=== PATIENT | female | born 1990 | race Caucasian/White ===

== ENCOUNTER 2017-08-23 16:35 | Emergency (ER) | payer MEDICAID ==
[~2017-08-23] VITALS: Ht 162.6 cm; Wt 67.7 kg
[~2017-08-23 16:35] MED LIST: IBIFON 600600 MG PO; IBU600 MG PO; IRON325 MG PO; MOTRIN 600600 MG/TAB PO; NORCO 325 MG-51 TAB PO; PERCOCET 325 MG1 TA2 PO; PRENATAL MVI PO; PRENATAL1 TA2 PO; ZOFRAN 4MG T4 MG/TAB PO
[2017-08-23 16:38] VITALS: BP 119/74; TEMP 97.9
[2017-08-23 17:17] LABS: COLLECTION METHOD CLEAN CATCH
[2017-08-23 17:30] LABS: BASO # 0.1 (0.0-0.2); BASO % 0.8 % (0.0-2.0); EOS # 0.3 (0.0-0.7); EOS % 3.9 % (0-4.0); GRAN # 5.1 (1.4-6.5); LYMPH # 1.8 (1.2-3.4); LYMPH % 22.9 % (20.0-51.0); MEAN CELL VOLUME 85 fl (80.0-100.0); MEAN CORPUSCULAR HGB CONC 32 g/dl (33.0-37.0); MEAN PLATELET VOLUME 11.7 fl (7.4-10.4); MONO # 0.6 (0.1-0.6); MONO % 7.1 % (1.7-9.3); PLATELET COUNT 195 K/mm3 (130-400); RED BLOOD COUNT 4.27 M/mm3 (4.10-5.30); REDCELL DISTRIBUTION WIDTH-CV 13.9 % (11.5-14.5)
[2017-08-23 17:33] LABS: HEMATOCRIT 36.1 % (37.0-47.0); HEMOGLOBIN 11.5 g/dl (12.5-16.0); MEAN CORPUSCULAR HEMOGLOBIN 27 pg (27.0-31.0)
[2017-08-23 17:34] LABS: MUCOUS Present /lpf; PH 5 (5-8); URINE APPEARANCE Cloudy; URINE BACTERIA None Seen /hpf; URINE BILIRUBIN Negative (NEGATIVE); URINE BLOOD 3+ (NEGATIVE); URINE COLOR Yellow; URINE GLUCOSE Negative (NEGATIVE); URINE KETONE Negative (NEGATIVE); URINE LEUKOCYTE ESTERASE 2+ (NEGATIVE); URINE NITRATE Negative (NEGATIVE); URINE PROTEIN(semi-quant) Negative (NEGATIVE); URINE UROBILINOGEN Negative (NEGATIVE)
[2017-08-23 18:35] VITALS: PULSE 94
== END 2017-08-23 18:36 | disposition home or self-care (01) ==
LOC: COL.ER 16:35
PROVIDERS: Nurse Practitioner
DX: O20.0 Threatened abortion (principal); Z3A.01 Less than 8 weeks gestation of pregnancy; Z98.890 Other specified postprocedural states

== ENCOUNTER 2017-08-31 14:00 | Day surgery (SDC) | payer MEDICAID ==
[2017-08-31] VITALS (9 sets, daily range): BP systolic 94–119; BP diastolic 55–74; PULSE 62–92; TEMP 98.9
[~2017-08-31] VITALS: Ht 162.6 cm; Wt 68.0 kg
[2017-08-31] MEDS ORDERED: IRON TABLETS325 MG PO (15:07)
[2017-08-31 15:25] LABS: BASO % 0.4 % (0.0-2.0); EOS # 0.2 (0.0-0.7); EOS % 2.1 % (0-4.0); GRAN # 6.3 (1.4-6.5); GRAN % 70.8 % (42.2-75.2); HEMOGLOBIN 11.3 g/dl (12.5-16.0); LYMPH # 1.9 (1.2-3.4); MEAN CELL VOLUME 84 fl (80.0-100.0); MEAN CORPUSCULAR HEMOGLOBIN 27 pg (27.0-31.0); MEAN CORPUSCULAR HGB CONC 32 g/dl (33.0-37.0); MEAN PLATELET VOLUME 11.4 fl (7.4-10.4); MONO # 0.5 (0.1-0.6); MONO % 5.4 % (1.7-9.3); PLATELET COUNT 170 K/mm3 (130-400); RED BLOOD COUNT 4.19 M/mm3 (4.10-5.30); REDCELL DISTRIBUTION WIDTH-CV 13.9 % (11.5-14.5)
[2017-08-31 15:44] LABS: ALBUMIN 4.8 gm/dL (3.5-5.0); BILIRUBIN,TOTAL 0.5 mg/dL (0.0-1.0); CALCIUM 9.3 mg/dL (8.4-10.2); CREATININE, serum 0.7 mg/dL (0.52-1.25); POTASSIUM 3.7 mmol/L (3.4-5.0)
[2017-08-31] MEDS ORDERED: PERCOCET 325 MG1 TA2 PO (19:00)
[2017-08-31] MEDS ORDERED: IBU600 MG PO (19:00)
[2017-09-01 03:50] VITALS: BP 97/59; PULSE 97; TEMP 98.1
[2017-09-01 08:30] VITALS: BP 96/55; PULSE 79; TEMP 98.6
== END 2017-09-01 10:45 | disposition home or self-care (01) ==
LOC: SDCO 14:00
PROVIDERS: Obstetrics & Gynecology
DX: O00.102 Left tubal pregnancy without intrauterine pregnancy (principal); O08.1 Delayed or excessive hemorrhage following ectopic and molar pregnancy; R19.09 Other intra-abdominal and pelvic swelling, mass and lump; O99.012 Anemia complicating pregnancy, second trimester; D50.9 Iron deficiency anemia, unspecified
CPT/HCPCS: J0690; J1100; J1885; J2405; J2704; J2710; J3010

== ENCOUNTER 2018-01-28 21:05 | Emergency (ER) | payer MEDICAID ==
[~2018-01-28] VITALS: Ht 162.6 cm; Wt 68.2 kg
[~2018-01-28 21:05] MED LIST changes: +IRON TABLETS325 MG PO
[2018-01-28 21:09] VITALS: TEMP 99.3
[2018-01-28] MEDS ORDERED: PRENATAL (21:47)
[2018-01-28 21:48] LABS: COLLECTION METHOD CLEAN CATCH
[2018-01-28 21:53] LABS: BASO % 0.6 % (0.0-2.0); EOS # 0.3 (0.0-0.7); GRAN % 55.6 % (42.2-75.2); LYMPH # 2.3 (1.2-3.4); LYMPH % 31.5 % (20.0-51.0); MEAN CELL VOLUME 80 fl (80.0-100.0); MEAN CORPUSCULAR HGB CONC 31 g/dl (33.0-37.0); MEAN PLATELET VOLUME 11.5 fl (7.4-10.4); MONO # 0.6 (0.1-0.6); PLATELET COUNT 207 K/mm3 (130-400); RED BLOOD COUNT 3.94 M/mm3 (4.10-5.30); REDCELL DISTRIBUTION WIDTH-CV 15.5 % (11.5-14.5)
[2018-01-28 21:55] LABS: MUCOUS Present /lpf; PH 7 (5-8); SQUAMOUS EPITHELIAL 0-2 /hpf; URINE APPEARANCE Hazy; URINE BACTERIA Rare /hpf; URINE BILIRUBIN Negative (NEGATIVE); URINE BLOOD 2+ (NEGATIVE); URINE COLOR Yellow; URINE GLUCOSE Negative (NEGATIVE); URINE KETONE Negative (NEGATIVE); URINE LEUKOCYTE ESTERASE Negative (NEGATIVE); URINE NITRATE Negative (NEGATIVE); URINE PROTEIN(semi-quant) Negative (NEGATIVE); URINE RBC 0-2 /hpf
[2018-01-28 21:57] LABS: HEMATOCRIT 31.5 % (37.0-47.0); HEMOGLOBIN 9.9 g/dl (12.5-16.0); MEAN CORPUSCULAR HEMOGLOBIN 25 pg (27.0-31.0)
[2018-01-28 21:59] LABS: BILIRUBIN,TOTAL 0.3 mg/dL (0.0-1.0); CREATININE, serum 0.73 mg/dL (0.52-1.25); POTASSIUM 3.5 mmol/L (3.4-5.0); TOTAL PROTEIN 7.5 gm/dL (6.4-8.2)
[2018-01-28 23:22] VITALS: BP 107/72; PULSE 91
== END 2018-01-28 23:22 | disposition home or self-care (01) ==
LOC: COL.ER 21:05
PROVIDERS: Nurse Practitioner
DX: O46.91 Antepartum hemorrhage, unspecified, first trimester (principal); Z3A.01 Less than 8 weeks gestation of pregnancy; Z98.890 Other specified postprocedural states

== ENCOUNTER 2019-03-01 12:49 | Outpatient (CLI) | payer MEDICAID ==
[~2019-03-01] VITALS: Ht 162.6 cm; Wt 60.7 kg
[~2019-03-01 12:49] MED LIST changes: +PRENATAL
[2019-03-01] MEDS ORDERED: BONJESTA ER 201 EACH PO (13:11)
[2019-03-01 13:15] VITALS: BP 114/64; PULSE 84; TEMP 98.7
== END 2019-03-01 15:20 | disposition home or self-care (01) ==
LOC: EUO 12:49
DX: O21.1 Hyperemesis gravidarum with metabolic disturbance (principal)
CPT/HCPCS: J2405; J7120

== ENCOUNTER 2019-03-14 19:20 | Emergency (ER) | payer MEDICAID ==
[~2019-03-14] VITALS: Ht 162.6 cm; Wt 61.4 kg
[~2019-03-14 19:20] MED LIST changes: +BONJESTA ER 201 EACH PO
[2019-03-14 19:29] VITALS: TEMP 98.9
[2019-03-14 19:59] LABS: COLLECTION METHOD CLEAN CATCH
[2019-03-14 20:08] LABS: BASO % 0.3 % (0.0-2.0); EOS # 0.5 (0.0-0.7); EOS % 4.4 % (0-4.0); GRAN # 7.1 (1.4-6.5); GRAN % 68.1 % (42.2-75.2); HEMOGLOBIN 12.4 g/dl (12.5-16.0); LYMPH # 2.2 (1.2-3.4); MEAN CELL VOLUME 95 fl (80.0-100.0); MEAN CORPUSCULAR HEMOGLOBIN 32 pg (27.0-31.0); MEAN CORPUSCULAR HGB CONC 34 g/dl (33.0-37.0); MEAN PLATELET VOLUME 10.9 fl (7.4-10.4); MONO # 0.6 (0.1-0.6); MONO % 5.7 % (1.7-9.3); PLATELET COUNT 187 K/mm3 (130-400); RED BLOOD COUNT 3.83 M/mm3 (4.10-5.30); REDCELL DISTRIBUTION WIDTH-CV 13.2 % (11.5-14.5)
[2019-03-14 20:14] LABS: HEMATOCRIT 36.2 % (37.0-47.0)
[2019-03-14 20:15] LABS: ALANINE AMINOTRANSFERASE < 6 U/L (9-52); ALKALINE PHOSPHATASE 62 U/L (50-136); ANION GAP 10 mmol/L (7-16); AST,SGOT 15 U/L (15-37); BILIRUBIN,TOTAL 0.3 mg/dL (0.0-1.0); BLOOD UREA NITROGEN 10 mg/dL (7-17); CARBON DIOXIDE 22 mmol/L (22-30); CHLORIDE 104 mmol/L (98-107); GLUCOSE 86 mg/dL (74-106); MUCOUS Present /lpf; PH 6 (5-8); POTASSIUM 3.5 mmol/L (3.4-5.0); SODIUM 136 mmol/L (137-145); TOTAL PROTEIN 7.2 gm/dL (6.4-8.2); URINE APPEARANCE Clear; URINE BACTERIA None Seen /hpf; URINE BILIRUBIN Negative (NEGATIVE); URINE BLOOD 2+ (NEGATIVE); URINE COLOR Yellow; URINE GLUCOSE Negative (NEGATIVE); URINE KETONE Negative (NEGATIVE); URINE LEUKOCYTE ESTERASE Negative (NEGATIVE); URINE NITRATE Negative (NEGATIVE); URINE PROTEIN(semi-quant) Negative (NEGATIVE); URINE UROBILINOGEN Negative (NEGATIVE)
[2019-03-14 21:50] VITALS: BP 102/69; PULSE 99
== END 2019-03-14 21:50 | disposition home or self-care (01) ==
LOC: COL.ER 19:20
PROVIDERS: Physician Assistant
DX: O21.9 Vomiting of pregnancy, unspecified (principal); Z3A.12 12 weeks gestation of pregnancy
CPT/HCPCS: J1200; J2405; J2765; J7030

== ENCOUNTER 2019-03-19 17:27 | Emergency (ER) | payer MEDICAID ==
[~2019-03-19] VITALS: Ht 160 cm; Wt 61.4 kg
[2019-03-19 17:38] VITALS: TEMP 98.7
[2019-03-19 18:39] LABS: COLLECTION METHOD CLEAN CATCH
[2019-03-19 18:45] LABS: BASO % 0.2 % (0.0-2.0); EOS # 0.4 (0.0-0.7); EOS % 4.7 % (0-4.0); GRAN # 5.1 (1.4-6.5); HEMATOCRIT 37.1 % (37.0-47.0); HEMOGLOBIN 12.7 g/dl (12.5-16.0); LYMPH # 2.2 (1.2-3.4); LYMPH % 25.9 % (20.0-51.0); MEAN CELL VOLUME 95 fl (80.0-100.0); MEAN CORPUSCULAR HEMOGLOBIN 33 pg (27.0-31.0); MEAN CORPUSCULAR HGB CONC 34 g/dl (33.0-37.0); MEAN PLATELET VOLUME 11.2 fl (7.4-10.4); MONO # 0.6 (0.1-0.6); MONO % 6.7 % (1.7-9.3); PLATELET COUNT 173 K/mm3 (130-400); RED BLOOD COUNT 3.91 M/mm3 (4.10-5.30); REDCELL DISTRIBUTION WIDTH-CV 13.2 % (11.5-14.5)
[2019-03-19 18:55] LABS: CALCIUM 9.4 mg/dL (8.4-10.2); CREATININE, serum 0.47 (0.52-1.25); POTASSIUM 3.6 mmol/L (3.4-5.0)
[2019-03-19 18:56] LABS: MUCOUS Present /lpf; PH 5 (5-8); URINE APPEARANCE Clear; URINE BACTERIA None Seen /hpf; URINE BILIRUBIN Negative (NEGATIVE); URINE BLOOD 1+ (NEGATIVE); URINE COLOR Yellow; URINE GLUCOSE Negative (NEGATIVE); URINE KETONE Negative (NEGATIVE); URINE LEUKOCYTE ESTERASE Negative (NEGATIVE); URINE NITRATE Negative (NEGATIVE); URINE PROTEIN(semi-quant) Negative (NEGATIVE)
[2019-03-19 20:10] VITALS: BP 110/72; PULSE 85
== END 2019-03-19 20:15 | disposition home or self-care (01) ==
LOC: COL.ER 17:27
PROVIDERS: Physician Assistant
DX: O21.1 Hyperemesis gravidarum with metabolic disturbance (principal); Z3A.13 13 weeks gestation of pregnancy
CPT/HCPCS: J2405; J7030

== ENCOUNTER 2019-03-26 19:30 | Emergency (ER) | payer MEDICAID ==
[~2019-03-26] VITALS: Ht 162.6 cm; Wt 63.6 kg
[2019-03-26 19:59] VITALS: TEMP 98.3
[2019-03-26 21:35] LABS: COLLECTION METHOD CLEAN CATCH
[2019-03-26 21:50] LABS: MUCOUS Present /lpf; PH 5 (5-8); SQUAMOUS EPITHELIAL 0-2 /hpf; URINE APPEARANCE Clear; URINE BACTERIA None Seen /hpf; URINE BILIRUBIN Negative (NEGATIVE); URINE BLOOD 2+ (NEGATIVE); URINE CALCIUM OXALATE CRYSTAL Present /hpf; URINE COLOR Yellow; URINE GLUCOSE Negative (NEGATIVE); URINE KETONE Trace (NEGATIVE); URINE LEUKOCYTE ESTERASE Negative (NEGATIVE); URINE NITRATE Negative (NEGATIVE); URINE PROTEIN(semi-quant) Negative (NEGATIVE); URINE RBC 20-50 /hpf
[2019-03-26] MEDS ORDERED: FLAGYL500 MG PO (23:25)
[2019-03-26 23:43] VITALS: BP 120/84; PULSE 92
== END 2019-03-26 23:43 | disposition home or self-care (01) ==
LOC: COL.ER 19:30
PROVIDERS: Nurse Practitioner
DX: O46.92 Antepartum hemorrhage, unspecified, second trimester (principal); Z3A.16 16 weeks gestation of pregnancy; Z98.890 Other specified postprocedural states; B96.89 Other specified bacterial agents as the cause of diseases classified elsewhere
CPT/HCPCS: J2550; J7030

== ENCOUNTER 2019-04-02 19:17 | Emergency (ER) | payer MEDICAID ==
[~2019-04-02] VITALS: Ht 162.6 cm; Wt 59.1 kg
[~2019-04-02 19:17] MED LIST changes: +FLAGYL500 MG PO
[2019-04-02 19:26] VITALS: TEMP 99
[2019-04-02] MEDS ORDERED: ZOFRAN 4MG T4 MG/TAB PO (19:30)
[2019-04-02] MEDS ORDERED: PHENERGAN 25 TA25 MG PO (19:30)
[2019-04-02 19:58] LABS: BASO % 0.4 % (0.0-2.0); EOS # 0.2 (0.0-0.7); EOS % 2.8 % (0-4.0); GRAN # 5.4 (1.4-6.5); GRAN % 73.1 % (42.2-75.2); HEMOGLOBIN 11.7 g/dl (12.5-16.0); LYMPH # 1.2 (1.2-3.4); LYMPH % 16.6 % (20.0-51.0); MEAN CELL VOLUME 96 fl (80.0-100.0); MEAN CORPUSCULAR HEMOGLOBIN 32 pg (27.0-31.0); MEAN CORPUSCULAR HGB CONC 34 g/dl (33.0-37.0); MEAN PLATELET VOLUME 11.4 fl (7.4-10.4); MONO # 0.5 (0.1-0.6); MONO % 6.8 % (1.7-9.3); PLATELET COUNT 143 K/mm3 (130-400); RED BLOOD COUNT 3.61 M/mm3 (4.10-5.30); REDCELL DISTRIBUTION WIDTH-CV 12.8 % (11.5-14.5)
[2019-04-02 20:01] LABS: HEMATOCRIT 34.8 % (37.0-47.0)
[2019-04-02 20:08] LABS: ALBUMIN 3.9 gm/dL (3.5-5.0); BILIRUBIN,TOTAL 0.9 mg/dL (0.0-1.0); CALCIUM 9.2 mg/dL (8.4-10.2); CREATININE, serum 0.49 (0.52-1.25); POTASSIUM 3.7 mmol/L (3.4-5.0); TOTAL PROTEIN 7.2 gm/dL (6.4-8.2)
[2019-04-02] MEDS ORDERED: ZOFRAN ODT4 MG PO (20:43)
[2019-04-02 21:05] VITALS: BP 105/65; PULSE 78
== END 2019-04-02 21:08 | disposition home or self-care (01) ==
LOC: COL.ER 19:17
PROVIDERS: Emergency Medicine
DX: O21.2 Late vomiting of pregnancy (principal); Z3A.17 17 weeks gestation of pregnancy
CPT/HCPCS: J2405; J2550; J7030

== ENCOUNTER 2019-04-19 19:12 | Emergency (ER) | payer MEDICAID ==
[~2019-04-19] VITALS: Ht 162.6 cm; Wt 61.4 kg
[~2019-04-19 19:12] MED LIST changes: +PHENERGAN 25 TA25 MG PO; +ZOFRAN ODT4 MG PO
[2019-04-19 19:24] VITALS: BP 108/52; TEMP 98.5
[2019-04-19 20:33] LABS: COLLECTION METHOD CLEAN CATCH
[2019-04-19 20:39] LABS: MUCOUS Present /lpf; PH 6 (5-8); SQUAMOUS EPITHELIAL 0-2 /hpf; URINE APPEARANCE Clear; URINE BACTERIA None Seen /hpf; URINE BILIRUBIN Negative (NEGATIVE); URINE BLOOD 2+ (NEGATIVE); URINE COLOR Yellow; URINE GLUCOSE Negative (NEGATIVE); URINE KETONE Negative (NEGATIVE); URINE LEUKOCYTE ESTERASE Negative (NEGATIVE); URINE NITRATE Negative (NEGATIVE); URINE PROTEIN(semi-quant) Negative (NEGATIVE); URINE UROBILINOGEN >=4.0 mg/dL (NEGATIVE)
[2019-04-19] MEDS ORDERED: TESSALON P100 MG/CAP PO ×2 (23:28)
[2019-04-19] MEDS ORDERED: MOTRIN 600600 MG/TAB PO ×2 (23:28)
[2019-04-19] MEDS ORDERED: ZITHROMAX Z PA250 MG PO (23:28)
[2019-04-19] MEDS ORDERED: MIRALAX238G PO (23:30)
[2019-04-19] MEDS ORDERED: DULCOLAX STOOL100 MG PO (23:30)
[2019-04-19 23:41] VITALS: PULSE 88
== END 2019-04-19 23:41 | disposition home or self-care (01) ==
LOC: COL.ER 19:12
PROVIDERS: Emergency Medicine
DX: O21.2 Late vomiting of pregnancy (principal); O26.892 Other specified pregnancy related conditions, second trimester; R51 Headache; K59.00 Constipation, unspecified; Z3A.19 19 weeks gestation of pregnancy; Z98.890 Other specified postprocedural states
CPT/HCPCS: J2405; J7030

== ENCOUNTER 2019-05-04 20:21 | Emergency (ER) | payer MEDICAID ==
[~2019-05-04] VITALS: Ht 162.6 cm; Wt 59.1 kg
[~2019-05-04 20:21] MED LIST changes: +DULCOLAX STOOL100 MG PO; +MIRALAX238G PO; +TESSALON P100 MG/CAP PO; +ZITHROMAX Z PA250 MG PO
[2019-05-04 21:13] LABS: COLLECTION METHOD CLEAN CATCH
[2019-05-04 21:19] LABS: MUCOUS Present /lpf; PH 6 (5-8); SQUAMOUS EPITHELIAL 0-2 /hpf; URINE APPEARANCE Clear; URINE BACTERIA None Seen /hpf; URINE BILIRUBIN Negative (NEGATIVE); URINE BLOOD 1+ (NEGATIVE); URINE COLOR Yellow; URINE GLUCOSE Negative (NEGATIVE); URINE KETONE Negative (NEGATIVE); URINE LEUKOCYTE ESTERASE Negative (NEGATIVE); URINE NITRATE Negative (NEGATIVE); URINE PROTEIN(semi-quant) Negative (NEGATIVE); URINE RBC 0-2 /hpf; URINE UROBILINOGEN >=4.0 mg/dL (NEGATIVE)
[2019-05-04 21:33] LABS: BASO % 0.4 % (0.0-2.0); EOS # 0.3 (0.0-0.7); EOS % 3.4 % (0-4.0); GRAN # 6.2 (1.4-6.5); GRAN % 63.9 % (42.2-75.2); HEMOGLOBIN 11.5 g/dl (12.5-16.0); LYMPH # 2.4 (1.2-3.4); LYMPH % 24.4 % (20.0-51.0); MEAN CELL VOLUME 95 fl (80.0-100.0); MEAN CORPUSCULAR HEMOGLOBIN 32 pg (27.0-31.0); MEAN CORPUSCULAR HGB CONC 34 g/dl (33.0-37.0); MEAN PLATELET VOLUME 11.7 fl (7.4-10.4); MONO # 0.7 (0.1-0.6); MONO % 7.5 % (1.7-9.3); PLATELET COUNT 158 K/mm3 (130-400); RED BLOOD COUNT 3.58 M/mm3 (4.10-5.30); REDCELL DISTRIBUTION WIDTH-CV 12.6 % (11.5-14.5)
[2019-05-04 21:49] LABS: ALANINE AMINOTRANSFERASE < 6 U/L (9-52); ALBUMIN 3.7 gm/dL (3.5-5.0); ALKALINE PHOSPHATASE 58 U/L (50-136); ANION GAP 9 mmol/L (7-16); AST,SGOT 11 U/L (15-37); BILIRUBIN,TOTAL 0.3 mg/dL (0.0-1.0); BLOOD UREA NITROGEN 8 mg/dL (7-17); C-REACTIVE PROTEIN 1.3 mg/dL (0.0-0.9); CALCIUM 9.3 mg/dL (8.4-10.2); CARBON DIOXIDE 22 mmol/L (22-30); CHLORIDE 105 mmol/L (98-107); CREATININE, serum 0.44 (0.52-1.25); GLUCOSE 88 mg/dL (74-106); POTASSIUM 3.6 mmol/L (3.4-5.0); SODIUM 136 mmol/L (137-145); TOTAL PROTEIN 7.1 gm/dL (6.4-8.2)
[2019-05-04 22:31] VITALS: BP 105/58; PULSE 80; TEMP 98.1
== END 2019-05-04 22:31 | disposition home or self-care (01) ==
LOC: COL.ER 20:21
PROVIDERS: Family Medicine
DX: O21.2 Late vomiting of pregnancy (principal); O99.282 Endocrine, nutritional and metabolic diseases complicating pregnancy, second trimester; E86.9 Volume depletion, unspecified; Z3A.19 19 weeks gestation of pregnancy
CPT/HCPCS: J2550; J7030

== ENCOUNTER 2019-09-19 05:09 | Inpatient (IN) | payer MEDICAID ==
[~2019-09-19] VITALS: Ht 162.7 cm; Wt 80.0 kg
[2019-09-19] VITALS (18 sets, daily range): BP systolic 100–121; BP diastolic 33–85; PULSE 79–104; TEMP 97.5–98.2
--- NOTE | 2019-09-19 05:15 | NUR ---
Patient ambulatory to unit accompanied by sister in law as support as her is deployed. Patient oriented to room and call light and clean gown on and resting in bed. FHR and contraction monitors placed and explained. Patient states only complication are anemia and hyperemesis. Patient denies any leaking of fluid or vaginal bleeding and states baby has been active. IV started in right hand, labs collected from IV site and LR infusing without difficulty. Consents signed.
[2019-09-19 05:53] LABS: BASO % 0.4 % (0.0-2.0); EOS # 0.3 (0.0-0.7); EOS % 2.7 % (0-4.0); GRAN # 6.8 (1.4-6.5); LYMPH # 2.2 (1.2-3.4); MEAN CELL VOLUME 80 fl (80.0-100.0); MEAN CORPUSCULAR HGB CONC 31 g/dl (33.0-37.0); MEAN PLATELET VOLUME 12.1 fl (7.4-10.4); MONO # 0.7 (0.1-0.6); MONO % 7.1 % (1.7-9.3); PLATELET COUNT 157 K/mm3 (130-400); RED BLOOD COUNT 3.99 M/mm3 (4.10-5.30); REDCELL DISTRIBUTION WIDTH-CV 15.9 % (11.5-14.5)
[2019-09-19 05:54] LABS: HEMATOCRIT 31.8 % (37.0-47.0); HEMOGLOBIN 9.8 g/dl (12.5-16.0); MEAN CORPUSCULAR HEMOGLOBIN 25 pg (27.0-31.0)
--- NOTE | 2019-09-19 15:35 | NUR ---
Patient to bathroom with standby assist, brown catheter removed and patient tolerates well. Pericare done, new gown/underwear/pad on on. Plan of care discussed.
[2019-09-20 04:30] VITALS: BP 109/73; PULSE 100; TEMP 98.6
[2019-09-20 08:12] LABS: HEMATOCRIT 26.7 % (37.0-47.0); HEMOGLOBIN 8.1 g/dl (12.5-16.0)
[2019-09-20 09:00] VITALS: BP 112/67; PULSE 95; TEMP 98.3
[2019-09-20] MEDS ORDERED: PERCOCET 325 MG1 TA2 PO (11:24)
[2019-09-20] MEDS ORDERED: IBU600 MG PO (11:24)
[2019-09-20 16:30] VITALS: BP 130/68; PULSE 100; TEMP 98.5
[2019-09-20 19:19] VITALS: BP 111/67; PULSE 89; TEMP 98.7
[2019-09-21 07:00] VITALS: BP 110/64; PULSE 72; TEMP 98.1
== END 2019-09-21 13:55 | disposition home or self-care (01) | DRG 788 ==
LOC: OB 05:09 → LDR 08:47 → OB 09:14
PROVIDERS: ADMIT Obstetrics & Gynecology
PROC: 10D00Z1 Extraction of Products of Conception, Low, Open Approach (ICD-10-PCS; principal; 2019-09-19)
DX: O34.211 Maternal care for low transverse scar from previous cesarean delivery (principal); Z3A.39 39 weeks gestation of pregnancy; Z37.0 Single live birth; O99.02 Anemia complicating childbirth; O21.0 Mild hyperemesis gravidarum; O77.0 Labor and delivery complicated by meconium in amniotic fluid
CPT/HCPCS: J0690; J1885; J2175; J2370; J2405; J2590; J3010; J7120

== ENCOUNTER 2020-05-01 22:41 | Emergency (ER) | payer MEDICAID ==
[~2020-05-01] VITALS: Ht 162.6 cm; Wt 72.7 kg
[2020-05-01 23:35] LABS: BASO # 0.1 (0.0-0.2); BASO % 0.5 % (0.0-2.0); EOS # 0.3 (0.0-0.7); EOS % 3.3 % (0-4.0); GRAN # 6.4 (1.4-6.5); GRAN % 65.9 % (42.2-75.2); HEMOGLOBIN 12.3 g/dl (12.5-16.0); LYMPH # 2.4 (1.2-3.4); LYMPH % 24.6 % (20.0-51.0); MEAN CELL VOLUME 89 fl (80.0-100.0); MEAN CORPUSCULAR HEMOGLOBIN 30 pg (27.0-31.0); MEAN CORPUSCULAR HGB CONC 33 g/dl (33.0-37.0); MEAN PLATELET VOLUME 10.9 fl (7.4-10.4); MONO # 0.5 (0.1-0.6); MONO % 5.3 % (1.7-9.3); PLATELET COUNT 213 K/mm3 (130-400); RED BLOOD COUNT 4.14 M/mm3 (4.10-5.30); REDCELL DISTRIBUTION WIDTH-CV 14.8 % (11.5-14.5)
[2020-05-02 01:15] LABS: COLLECTION METHOD CATHETER
[2020-05-02 01:25] LABS: MUCOUS Present /lpf; PH 5 (5-8); SQUAMOUS EPITHELIAL 0-2 /hpf; URINE APPEARANCE Clear; URINE BACTERIA None Seen /hpf; URINE BILIRUBIN Negative (NEGATIVE); URINE BLOOD 1+ (NEGATIVE); URINE COLOR Yellow; URINE GLUCOSE Negative (NEGATIVE); URINE KETONE Negative (NEGATIVE); URINE LEUKOCYTE ESTERASE Negative (NEGATIVE); URINE NITRATE Negative (NEGATIVE); URINE PROTEIN(semi-quant) Negative (NEGATIVE); URINE RBC 0-2 /hpf; URINE UROBILINOGEN Negative (NEGATIVE)
[2020-05-02 02:00] VITALS: BP 134/71; PULSE 84; TEMP 98.2
== END 2020-05-02 02:03 | disposition home or self-care (01) ==
LOC: COL.ER 22:41
PROVIDERS: Emergency Medicine
DX: N92.1 Excessive and frequent menstruation with irregular cycle (principal)

== ENCOUNTER 2020-06-26 07:00 | Outpatient (RCR) | payer MEDICAID ==
[~2020-06-26] VITALS: Ht 162.6 cm; Wt 73.3 kg
[2020-06-26] VITALS (9 sets, daily range): BP systolic 96–118; BP diastolic 63–77; PULSE 87–95; TEMP 98.3–98.5
== END 2020-06-26 12:00 | disposition home or self-care (01) ==
LOC: EUO 07:00
DX: D50.0 Iron deficiency anemia secondary to blood loss (chronic) (principal); N92.0 Excessive and frequent menstruation with regular cycle
CPT/HCPCS: J7050; P9016

== ENCOUNTER 2020-07-06 11:30 | Outpatient (RCR) | payer MEDICAID ==
[2020-07-01 16:32] VITALS: BP 103/62; PULSE 82; TEMP 98.7
[2020-07-01 18:00] VITALS: BP 124/79; PULSE 109
[~2020-07-06] VITALS: Ht 162.6 cm; Wt 76.3 kg
== END 2020-07-08 16:51 | disposition home or self-care (01) ==
LOC: EUO 11:30
DX: D50.9 Iron deficiency anemia, unspecified (principal)
CPT/HCPCS: J2916

== ENCOUNTER 2020-12-24 11:07 | Emergency (ER) | payer MEDICAID ==
[~2020-12-24] VITALS: Ht 162.6 cm; Wt 72.7 kg
[2020-12-24 11:29] VITALS: TEMP 98.2
[2020-12-24 12:30] LABS: BASO % 0.6 % (0.0-2.0); EOS # 0.1 (0.0-0.7); GRAN # 5.1 (1.4-6.5); GRAN % 71.2 % (42.2-75.2); HEMATOCRIT 37.2 % (37.0-47.0); HEMOGLOBIN 11.6 g/dl (12.5-16.0); LYMPH # 1.4 (1.2-3.4); LYMPH % 19.6 % (20.0-51.0); MEAN CELL VOLUME 83 fl (80.0-100.0); MEAN CORPUSCULAR HEMOGLOBIN 26 pg (27.0-31.0); MEAN CORPUSCULAR HGB CONC 31 g/dl (33.0-37.0); MEAN PLATELET VOLUME 11.8 fl (7.4-10.4); MONO # 0.5 (0.1-0.6); MONO % 6.3 % (1.7-9.3); PLATELET COUNT 212 K/mm3 (130-400); RED BLOOD COUNT 4.51 M/mm3 (4.10-5.30); REDCELL DISTRIBUTION WIDTH-CV 14.4 % (11.5-14.5)
[2020-12-24 12:48] LABS: ALBUMIN 4.6 gm/dL (3.5-5.0); BILIRUBIN,TOTAL 0.8 mg/dL (0.0-1.0); CALCIUM 9.7 mg/dL (8.4-10.2); CREATININE, serum 0.64 (0.52-1.25); POTASSIUM 3.6 mmol/L (3.4-5.0); TOTAL PROTEIN 8.5 gm/dL (6.4-8.2)
[2020-12-24 16:31] LABS: COLLECTION METHOD CLEAN CATCH
[2020-12-24 16:43] LABS: MUCOUS Present /lpf; PH 6 (5-8); URINE APPEARANCE Hazy; URINE BACTERIA None Seen /hpf; URINE BILIRUBIN Negative (NEGATIVE); URINE BLOOD 3+ (NEGATIVE); URINE COLOR Yellow; URINE GLUCOSE Negative (NEGATIVE); URINE KETONE 1+ (NEGATIVE); URINE LEUKOCYTE ESTERASE Negative (NEGATIVE); URINE NITRATE Negative (NEGATIVE); URINE PROTEIN(semi-quant) Negative (NEGATIVE)
[2020-12-24 17:20] VITALS: BP 132/90; PULSE 70
== END 2020-12-24 17:25 | disposition home or self-care (01) ==
LOC: COL.ER 11:07
PROVIDERS: Nurse Practitioner
DX: O20.0 Threatened abortion (principal); Z3A.01 Less than 8 weeks gestation of pregnancy
CPT/HCPCS: J2550; J7030

== ENCOUNTER 2020-12-31 17:52 | Emergency (ER) | payer MEDICAID ==
[~2020-12-31] VITALS: Ht 162.6 cm; Wt 72.7 kg
[2020-12-31 18:16] VITALS: TEMP 99.5
[2020-12-31 19:02] LABS: BASO % 0.4 % (0.0-2.0); EOS # 0.1 (0.0-0.7); EOS % 0.7 % (0-4.0); GRAN # 6.4 (1.4-6.5); GRAN % 77.7 % (42.2-75.2); HEMATOCRIT 37.7 % (37.0-47.0); HEMOGLOBIN 12.1 g/dl (12.5-16.0); LYMPH # 1.2 (1.2-3.4); LYMPH % 14.9 % (20.0-51.0); MEAN CELL VOLUME 83 fl (80.0-100.0); MEAN CORPUSCULAR HEMOGLOBIN 27 pg (27.0-31.0); MEAN CORPUSCULAR HGB CONC 32 g/dl (33.0-37.0); MEAN PLATELET VOLUME 11.7 fl (7.4-10.4); MONO # 0.5 (0.1-0.6); MONO % 5.9 % (1.7-9.3); PLATELET COUNT 215 K/mm3 (130-400); RED BLOOD COUNT 4.55 M/mm3 (4.10-5.30); REDCELL DISTRIBUTION WIDTH-CV 14.8 % (11.5-14.5)
[2020-12-31 20:17] VITALS: BP 102/60; PULSE 87
== END 2020-12-31 20:17 | disposition home or self-care (01) ==
LOC: COL.ER 17:52
PROVIDERS: Nurse Practitioner Primary Care
DX: O46.91 Antepartum hemorrhage, unspecified, first trimester (principal); Z3A.08 8 weeks gestation of pregnancy
CPT/HCPCS: J2550; J7030

== ENCOUNTER 2021-01-12 20:46 | Emergency (ER) | payer MEDICAID ==
[~2021-01-12] VITALS: Ht 162.6 cm; Wt 70.1 kg
[2021-01-12 21:33] VITALS: TEMP 99.1
[2021-01-12 23:42] LABS: BASO % 0.5 % (0.0-2.0); EOS # 0.2 (0.0-0.7); EOS % 2.6 % (0-4.0); GRAN # 5.1 (1.4-6.5); GRAN % 65.5 % (42.2-75.2); HEMATOCRIT 34.5 % (37.0-47.0); HEMOGLOBIN 11.1 g/dl (12.5-16.0); LYMPH % 25.2 % (20.0-51.0); MEAN CELL VOLUME 83 fl (80.0-100.0); MEAN CORPUSCULAR HEMOGLOBIN 27 pg (27.0-31.0); MEAN CORPUSCULAR HGB CONC 32 g/dl (33.0-37.0); MEAN PLATELET VOLUME 11.4 fl (7.4-10.4); MONO # 0.5 (0.1-0.6); MONO % 5.8 % (1.7-9.3); PLATELET COUNT 203 K/mm3 (130-400); RED BLOOD COUNT 4.14 M/mm3 (4.10-5.30); REDCELL DISTRIBUTION WIDTH-CV 15.1 % (11.5-14.5)
[2021-01-12 23:46] LABS: COLLECTION METHOD CLEAN CATCH
[2021-01-12 23:53] LABS: MUCOUS Present /lpf; PH 5 (5-8); SQUAMOUS EPITHELIAL None Seen /hpf; URINE APPEARANCE Cloudy; URINE BACTERIA None Seen /hpf; URINE BILIRUBIN Negative (NEGATIVE); URINE BLOOD Negative (NEGATIVE); URINE COLOR Yellow; URINE GLUCOSE Negative (NEGATIVE); URINE KETONE Trace (NEGATIVE); URINE LEUKOCYTE ESTERASE Negative (NEGATIVE); URINE NITRATE Negative (NEGATIVE); URINE PROTEIN(semi-quant) 1+ (NEGATIVE); URINE RBC 0-2 /hpf; URINE UROBILINOGEN >=4.0 mg/dL (NEGATIVE)
[2021-01-12 23:59] LABS: ALBUMIN 4.2 gm/dL (3.5-5.0); BILIRUBIN,TOTAL 0.6 mg/dL (0.0-1.0); CALCIUM 9.1 mg/dL (8.4-10.2); CREATININE, serum 0.52 (0.52-1.25); POTASSIUM 3.6 mmol/L (3.4-5.0); TOTAL PROTEIN 7.7 gm/dL (6.4-8.2)
[2021-01-13 00:23] LABS: C-REACTIVE PROTEIN 1.4 mg/dL (0.0-0.9)
[2021-01-13 01:49] VITALS: BP 108/78; PULSE 88
== END 2021-01-13 01:49 | disposition home or self-care (01) ==
LOC: COL.ER 20:46
PROVIDERS: Nurse Practitioner Primary Care
DX: O21.9 Vomiting of pregnancy, unspecified (principal); Z3A.09 9 weeks gestation of pregnancy
CPT/HCPCS: J2550

== ENCOUNTER 2021-01-18 16:26 | Emergency (ER) | payer MEDICAID ==
[~2021-01-18] VITALS: Ht 162.6 cm; Wt 70.0 kg
[2021-01-18 16:44] LABS: COLLECTION METHOD CLEAN CATCH
[2021-01-18 17:20] LABS: BASO % 0.4 % (0.0-2.0); EOS # 0.2 (0.0-0.7); EOS % 2.7 % (0-4.0); GRAN # 4.4 (1.4-6.5); GRAN % 65.7 % (42.2-75.2); HEMATOCRIT 37.6 % (37.0-47.0); HEMOGLOBIN 12.1 g/dl (12.5-16.0); LYMPH # 1.6 (1.2-3.4); LYMPH % 23.5 % (20.0-51.0); MEAN CELL VOLUME 84 fl (80.0-100.0); MEAN CORPUSCULAR HEMOGLOBIN 27 pg (27.0-31.0); MEAN CORPUSCULAR HGB CONC 32 g/dl (33.0-37.0); MEAN PLATELET VOLUME 11.9 fl (7.4-10.4); MONO # 0.5 (0.1-0.6); MONO % 7.3 % (1.7-9.3); PLATELET COUNT 209 K/mm3 (130-400); RED BLOOD COUNT 4.47 M/mm3 (4.10-5.30); REDCELL DISTRIBUTION WIDTH-CV 15.4 % (11.5-14.5)
[2021-01-18 17:20] LABS: MUCOUS Present /lpf; PH 6 (5-8); SQUAMOUS EPITHELIAL 0-2 /hpf; URINE APPEARANCE Clear; URINE BACTERIA Rare /hpf; URINE BILIRUBIN Negative (NEGATIVE); URINE BLOOD 1+ (NEGATIVE); URINE COLOR Yellow; URINE GLUCOSE Negative (NEGATIVE); URINE KETONE 2+ (NEGATIVE); URINE LEUKOCYTE ESTERASE Negative (NEGATIVE); URINE NITRATE Negative (NEGATIVE); URINE PROTEIN(semi-quant) Negative (NEGATIVE)
[2021-01-18 17:32] LABS: ALBUMIN 4.4 gm/dL (3.5-5.0); BILIRUBIN,TOTAL 0.7 mg/dL (0.0-1.0); CALCIUM 9.7 mg/dL (8.4-10.2); CREATININE, serum 0.57 (0.52-1.25); POTASSIUM 3.8 mmol/L (3.4-5.0)
[2021-01-18] MEDS ORDERED: PHENERGAN 25 TA25 MG PO (20:00)
[2021-01-18 20:34] VITALS: BP 101/59; PULSE 87; TEMP 98.9
== END 2021-01-18 20:35 | disposition home or self-care (01) ==
LOC: COL.ER 16:26
PROVIDERS: Family Medicine; Nurse Practitioner
DX: O21.9 Vomiting of pregnancy, unspecified (principal); Z3A.09 9 weeks gestation of pregnancy
CPT/HCPCS: J2550; J7030

== ENCOUNTER 2021-02-02 12:17 | Emergency (ER) | payer MEDICAID ==
[~2021-02-02] VITALS: Ht 162.6 cm; Wt 70.5 kg
[2021-02-02 12:24] VITALS: TEMP 98.5
[2021-02-02 13:21] LABS: COLLECTION METHOD CLEAN CATCH
[2021-02-02 13:41] LABS: MUCOUS Present /lpf; PH 5 (5-8); SQUAMOUS EPITHELIAL 0-2 /hpf; URINE APPEARANCE Cloudy; URINE BACTERIA None Seen /hpf; URINE BILIRUBIN Negative (NEGATIVE); URINE BLOOD 1+ (NEGATIVE); URINE COLOR Amber; URINE GLUCOSE Negative (NEGATIVE); URINE KETONE Trace (NEGATIVE); URINE LEUKOCYTE ESTERASE Negative (NEGATIVE); URINE NITRATE Negative (NEGATIVE); URINE PROTEIN(semi-quant) 1+ (NEGATIVE); URINE RBC 0-2 /hpf
[2021-02-02] MEDS ORDERED: BONJESTA ER 201 EACH PO (15:03)
[2021-02-02 15:15] VITALS: BP 103/76; PULSE 81
== END 2021-02-02 15:20 | disposition home or self-care (01) ==
LOC: COL.ER 12:17
PROVIDERS: Nurse Practitioner Primary Care
DX: O21.9 Vomiting of pregnancy, unspecified (principal); Z3A.12 12 weeks gestation of pregnancy
CPT/HCPCS: J2550; J7030

== ENCOUNTER 2021-02-08 10:44 | Emergency (ER) | payer MEDICAID ==
[~2021-02-08] VITALS: Ht 162.6 cm; Wt 63.6 kg
[2021-02-08 10:48] VITALS: TEMP 98.2
[2021-02-08 11:13] LABS: COLLECTION METHOD CLEAN CATCH
[2021-02-08 11:22] LABS: MUCOUS Present /lpf; PH 6 (5-8); SQUAMOUS EPITHELIAL None Seen /hpf; URINE APPEARANCE Clear; URINE BACTERIA None Seen /hpf; URINE BILIRUBIN Negative (NEGATIVE); URINE BLOOD 1+ (NEGATIVE); URINE COLOR Yellow; URINE GLUCOSE Negative (NEGATIVE); URINE KETONE Negative (NEGATIVE); URINE LEUKOCYTE ESTERASE Negative (NEGATIVE); URINE NITRATE Negative (NEGATIVE); URINE PROTEIN(semi-quant) Negative (NEGATIVE); URINE UROBILINOGEN >=4.0 mg/dL (NEGATIVE)
[2021-02-08 11:32] LABS: BILIRUBIN,TOTAL 0.5 mg/dL (0.0-1.0); CREATININE, serum 0.53 (0.52-1.25); POTASSIUM 3.9 mmol/L (3.4-5.0); TOTAL PROTEIN 7.7 gm/dL (6.4-8.2)
[2021-02-08 11:39] LABS: BASO % 0.7 % (0.0-2.0); EOS # 0.2 (0.0-0.7); EOS % 5.1 % (0-4.0); GRAN # 2.5 (1.4-6.5); GRAN % 55.6 % (42.2-75.2); LYMPH # 1.4 (1.2-3.4); LYMPH % 31.3 % (20.0-51.0); MEAN CELL VOLUME 85 fl (80.0-100.0); MEAN CORPUSCULAR HGB CONC 33 g/dl (33.0-37.0); MEAN PLATELET VOLUME 11.6 fl (7.4-10.4); MONO # 0.3 (0.1-0.6); MONO % 7.1 % (1.7-9.3); PLATELET COUNT 128 K/mm3 (130-400); REDCELL DISTRIBUTION WIDTH-CV 15.7 % (11.5-14.5)
[2021-02-08 11:42] LABS: HEMATOCRIT 29.6 % (37.0-47.0); HEMOGLOBIN 9.8 g/dl (12.5-16.0); MEAN CORPUSCULAR HEMOGLOBIN 28 pg (27.0-31.0)
[2021-02-08 12:55] VITALS: BP 100/64; PULSE 62
== END 2021-02-08 12:58 | disposition home or self-care (01) ==
LOC: COL.ER 10:44
PROVIDERS: Emergency Medicine
DX: O21.9 Vomiting of pregnancy, unspecified (principal); O20.0 Threatened abortion; Z3A.13 13 weeks gestation of pregnancy
CPT/HCPCS: J2765; J7030

== ENCOUNTER 2021-02-24 21:06 | Emergency (ER) | payer MEDICAID ==
[~2021-02-24] VITALS: Ht 162.6 cm; Wt 68.2 kg
[2021-02-24 22:44] LABS: BASO % 0.1 % (0.0-2.0); EOS # 0.3 (0.0-0.7); EOS % 3.6 % (0-4.0); GRAN # 4.6 (1.4-6.5); HEMATOCRIT 30.6 % (37.0-47.0); HEMOGLOBIN 10.3 g/dl (12.5-16.0); LYMPH # 1.6 (1.2-3.4); LYMPH % 23.1 % (20.0-51.0); MEAN CELL VOLUME 84 fl (80.0-100.0); MEAN CORPUSCULAR HEMOGLOBIN 28 pg (27.0-31.0); MEAN CORPUSCULAR HGB CONC 34 g/dl (33.0-37.0); MEAN PLATELET VOLUME 10.8 fl (7.4-10.4); MONO # 0.5 (0.1-0.6); MONO % 6.8 % (1.7-9.3); PLATELET COUNT 154 K/mm3 (130-400); RED BLOOD COUNT 3.65 M/mm3 (4.10-5.30); REDCELL DISTRIBUTION WIDTH-CV 16.5 % (11.5-14.5)
[2021-02-24 23:01] LABS: ALBUMIN 3.8 gm/dL (3.5-5.0); BILIRUBIN,TOTAL 0.6 mg/dL (0.0-1.0); CREATININE, serum 0.61 (0.52-1.25); POTASSIUM 3.3 mmol/L (3.4-5.0); TOTAL PROTEIN 6.8 gm/dL (6.4-8.2)
[2021-02-25 00:01] LABS: COLLECTION METHOD CLEAN CATCH
[2021-02-25 00:08] LABS: MUCOUS Present /lpf; PH 6 (5-8); SQUAMOUS EPITHELIAL 0-2 /hpf; URINE APPEARANCE Clear; URINE BACTERIA None Seen /hpf; URINE BILIRUBIN Negative (NEGATIVE); URINE BLOOD 1+ (NEGATIVE); URINE COLOR Yellow; URINE GLUCOSE Negative (NEGATIVE); URINE KETONE 1+ (NEGATIVE); URINE LEUKOCYTE ESTERASE Negative (NEGATIVE); URINE NITRATE Negative (NEGATIVE); URINE PROTEIN(semi-quant) Negative (NEGATIVE); URINE RBC 0-2 /hpf; URINE UROBILINOGEN Negative (NEGATIVE)
[2021-02-25 00:38] VITALS: BP 89/56; PULSE 86; TEMP 98.4
== END 2021-02-25 00:38 | disposition home or self-care (01) ==
LOC: COL.ER 21:06 → MEDICAL 23:50 → COL.ER 02-25 00:38
PROVIDERS: Emergency Medicine
DX: O21.0 Mild hyperemesis gravidarum (principal); O20.0 Threatened abortion; Z3A.15 15 weeks gestation of pregnancy
CPT/HCPCS: J2550; J7120

== ENCOUNTER 2021-03-17 20:01 | Emergency (ER) | payer MEDICAID ==
[~2021-03-17] VITALS: Ht 162.6 cm; Wt 68.2 kg
[2021-03-17 21:58] LABS: COLLECTION METHOD CLEAN CATCH
[2021-03-17 22:02] LABS: BASO % 0.4 % (0.0-2.0); EOS # 0.3 (0.0-0.7); EOS % 3.8 % (0-4.0); GRAN # 4.6 (1.4-6.5); GRAN % 64.6 % (42.2-75.2); HEMATOCRIT 34.1 % (37.0-47.0); LYMPH # 1.6 (1.2-3.4); LYMPH % 22.7 % (20.0-51.0); MEAN CELL VOLUME 87 fl (80.0-100.0); MEAN CORPUSCULAR HEMOGLOBIN 28 pg (27.0-31.0); MEAN CORPUSCULAR HGB CONC 32 g/dl (33.0-37.0); MEAN PLATELET VOLUME 11.8 fl (7.4-10.4); MONO # 0.6 (0.1-0.6); MONO % 7.9 % (1.7-9.3); PLATELET COUNT 220 K/mm3 (130-400)
[2021-03-17 22:07] LABS: MUCOUS Present /lpf; PH 5 (5-8); SQUAMOUS EPITHELIAL 0-2 /hpf; URINE APPEARANCE Hazy; URINE BACTERIA None Seen /hpf; URINE BILIRUBIN Negative (NEGATIVE); URINE BLOOD Negative (NEGATIVE); URINE COLOR Amber; URINE GLUCOSE Negative (NEGATIVE); URINE KETONE 1+ (NEGATIVE); URINE LEUKOCYTE ESTERASE Negative (NEGATIVE); URINE NITRATE Negative (NEGATIVE); URINE PROTEIN(semi-quant) 1+ (NEGATIVE)
[2021-03-17 22:32] LABS: ALBUMIN 3.6 gm/dL (3.5-5.0); BILIRUBIN,TOTAL 0.6 mg/dL (0.2-1.2); C-REACTIVE PROTEIN 6.6 mg/dL (0.00-0.50); CALCIUM 9.5 mg/dL (8.4-10.2); CREATININE, serum 0.72 mg/dL (0.57-1.11); TOTAL PROTEIN 8.2 gm/dL (6.2-8.1)
[2021-03-17 23:15] VITALS: BP 109/60; PULSE 80; TEMP 97.6
== END 2021-03-17 23:18 | disposition home or self-care (01) ==
LOC: COL.ER 20:01
PROVIDERS: Family Medicine
DX: O21.0 Mild hyperemesis gravidarum (principal); O20.0 Threatened abortion; Z3A.17 17 weeks gestation of pregnancy
CPT/HCPCS: J2550; J7120

== ENCOUNTER 2021-04-20 17:13 | Emergency (ER) | payer MEDICAID ==
[~2021-04-20] VITALS: Ht 162.6 cm; Wt 72.7 kg
[2021-04-20 18:23] LABS: BASO % 0.5 % (0.0-2.0); EOS # 0.1 K/mm3 (0.0-0.7); EOS % 0.8 % (0-4.0); GRAN # 5.3 K/mm3 (1.4-6.5); GRAN % 82.9 % (42.2-75.2); LYMPH # 0.6 K/mm3 (1.2-3.4); LYMPH % 9.1 % (20.0-51.0); MEAN CELL VOLUME 85 fl (80.0-100.0); MEAN CORPUSCULAR HGB CONC 32 g/dl (33.0-37.0); MONO # 0.4 K/mm3 (0.1-0.6); MONO % 6.1 % (1.7-9.3); PLATELET COUNT 157 K/mm3 (130-400); RED BLOOD COUNT 3.47 M/mm3 (4.10-5.30); REDCELL DISTRIBUTION WIDTH-CV 15.5 % (11.5-14.5)
[2021-04-20 18:28] LABS: HEMATOCRIT 29.6 % (37.0-47.0); HEMOGLOBIN 9.4 g/dl (12.5-16.0); MEAN CORPUSCULAR HEMOGLOBIN 27 pg (27.0-31.0)
[2021-04-20 18:34] LABS: COLLECTION METHOD CLEAN CATCH
[2021-04-20 18:48] LABS: MUCOUS Present /lpf; PH 5 (5-8); SQUAMOUS EPITHELIAL 0-2 /hpf; URINE APPEARANCE Hazy; URINE BACTERIA None Seen /hpf; URINE BILIRUBIN Negative (NEGATIVE); URINE BLOOD 3+ (NEGATIVE); URINE COLOR Yellow; URINE GLUCOSE Negative (NEGATIVE); URINE KETONE 1+ (NEGATIVE); URINE LEUKOCYTE ESTERASE Negative (NEGATIVE); URINE NITRATE Negative (NEGATIVE); URINE PROTEIN(semi-quant) Negative (NEGATIVE); URINE UROBILINOGEN Negative (NEGATIVE)
[2021-04-20 18:51] LABS: ALBUMIN 3.3 gm/dL (3.5-5.0); BILIRUBIN,TOTAL 0.5 mg/dL (0.2-1.2); C-REACTIVE PROTEIN 3.93 mg/dL (0.00-0.50); CALCIUM 8.9 mg/dL (8.4-10.2); CREATININE, serum 0.66 mg/dL (0.57-1.11); POTASSIUM 3.7 mmol/L (3.5-4.5); TOTAL PROTEIN 6.8 gm/dL (6.2-8.1)
[2021-04-20 22:13] VITALS: BP 105/70; PULSE 114; TEMP 98.9
== END 2021-04-20 22:40 | disposition home or self-care (01) ==
LOC: COL.ER 17:13
PROVIDERS: Nurse Practitioner
DX: O98.512 Other viral diseases complicating pregnancy, second trimester (principal); U07.1 COVID-19; Z3A.23 23 weeks gestation of pregnancy
CPT/HCPCS: J2550; J7030

== ENCOUNTER 2021-04-26 10:21 | Emergency (ER) | payer MEDICAID ==
[~2021-04-26] VITALS: Ht 162.6 cm; Wt 72.7 kg
[2021-04-26 10:54] VITALS: TEMP 98.4
[2021-04-26 11:40] LABS: MEAN CELL VOLUME 84 fl (80.0-100.0); MEAN CORPUSCULAR HGB CONC 32 g/dl (33.0-37.0); MEAN PLATELET VOLUME 11.4 fl (7.4-10.4); PLATELET COUNT 135 K/mm3 (130-400); RED BLOOD COUNT 3.67 M/mm3 (4.10-5.30); REDCELL DISTRIBUTION WIDTH-CV 15.5 % (11.5-14.5)
--- NOTE | 2021-04-26 11:40 | NUR ---
This RN to bedside to doppler heart tones. Patient denies any LOF or VB. Patient reports intermittent cramping; abdomen palpates soft. FHR 140's, no audible increases or decreases. Primary [employer] CHUTE OPERATOR notified.
[2021-04-26 11:48] LABS: HEMATOCRIT 30.9 % (37.0-47.0); HEMOGLOBIN 9.8 g/dl (12.5-16.0); MEAN CORPUSCULAR HEMOGLOBIN 27 pg (27.0-31.0)
[2021-04-26 11:55] LABS: ALANINE AMINOTRANSFERASE 11 U/L (0-55); ALKALINE PHOSPHATASE 81 U/L (40-150); ANION GAP 11 mmol/L (7-16); AST,SGOT 14 U/L (5-34); BILIRUBIN,TOTAL 0.4 mg/dL (0.2-1.2); BLOOD UREA NITROGEN 8 mg/dL (7-19); C-REACTIVE PROTEIN 6.26 mg/dL (0.00-0.50); CALCIUM 8.8 mg/dL (8.4-10.2); CARBON DIOXIDE 20 mmol/L (22-29); CHLORIDE 108 mmol/L (98-107); CREATININE, serum 0.69 mg/dL (0.57-1.11); GLUCOSE 101 mg/dL (70-99); POTASSIUM 3.6 mmol/L (3.5-4.5); SODIUM 139 mmol/L (136-145); TOTAL PROTEIN 7.2 gm/dL (6.2-8.1)
[2021-04-26 12:24] LABS: BAND 10 % (0-10); LYMPHOCYTE 19 % (20.0-51.0); METAMYELOCYTE 2 % (0-0); NEUTROPHILS 64 % (42.0-75.2)
[2021-04-26 12:25] LABS: ANISOCYTOSIS 1+; HYPOCHROMIA 2+; TROPONIN-I < 0.010 ng/mL (0.00-0.033)
[2021-04-26] MEDS ORDERED: PHENERGAN 25 TA25 MG PO (13:26)
[2021-04-26 14:41] VITALS: BP 101/70; PULSE 94
== END 2021-04-26 14:43 | disposition home or self-care (01) ==
LOC: COL.ER 10:21
PROVIDERS: Nurse Practitioner
DX: O98.512 Other viral diseases complicating pregnancy, second trimester (principal); U07.1 COVID-19; O21.9 Vomiting of pregnancy, unspecified; Z3A.23 23 weeks gestation of pregnancy
CPT/HCPCS: J2550; J7030

== ENCOUNTER 2021-05-01 14:57 | Emergency (ER) | payer MEDICAID ==
[~2021-05-01] VITALS: Ht 162.6 cm; Wt 72.7 kg
--- NOTE | 2021-05-01 16:15 | NUR ---
This RN at bedside for FHR strip and assessing patient. Patient denies any leaking of fluid/heavy vaginal bleeding/decreased movements/regular contractions. 20 minute FHR strip obtained: 145-150bpm baseline. 1640: Spoke with RN and updated her on FHR strip. questions about vaginal bleeding and abdominal pain that she had complaints of. 1644: This RN calls and updates/notifies Dr. Sousa on patients complaints/FHR strip. Dr. Sousa states she is okay with dismissal of patient. This RN calls and notifies ER nurse.
[2021-05-01 17:18] VITALS: BP 104/67; PULSE 88; TEMP 98
== END 2021-05-01 17:15 | disposition home or self-care (01) ==
LOC: COL.ER 14:57
DX: O98.512 Other viral diseases complicating pregnancy, second trimester (principal); U07.1 COVID-19; O21.9 Vomiting of pregnancy, unspecified; Z3A.24 24 weeks gestation of pregnancy
CPT/HCPCS: J2765; J7030

== ENCOUNTER 2021-05-31 14:00 | Emergency (ER) | payer MEDICAID ==
[~2021-05-31] VITALS: Ht 162.6 cm; Wt 68.2 kg
[2021-05-31 17:46] LABS: BASO % 0.2 % (0.0-2.0); EOS # 0.2 K/mm3 (0.0-0.7); EOS % 2.8 % (0-4.0); GRAN # 5.7 K/mm3 (1.4-6.5); GRAN % 70.4 % (42.2-75.2); LYMPH # 1.6 K/mm3 (1.2-3.4); LYMPH % 19.7 % (20.0-51.0); MEAN CELL VOLUME 86 fl (80.0-100.0); MEAN CORPUSCULAR HGB CONC 30 g/dl (33.0-37.0); MEAN PLATELET VOLUME 12.4 fl (7.4-10.4); MONO # 0.5 K/mm3 (0.1-0.6); MONO % 6.2 % (1.7-9.3); PLATELET COUNT 165 K/mm3 (130-400); RED BLOOD COUNT 3.31 M/mm3 (4.10-5.30); REDCELL DISTRIBUTION WIDTH-CV 17.2 % (11.5-14.5)
[2021-05-31 17:51] LABS: HEMATOCRIT 28.5 % (37.0-47.0); HEMOGLOBIN 8.6 g/dl (12.5-16.0); MEAN CORPUSCULAR HEMOGLOBIN 26 pg (27.0-31.0)
[2021-05-31 18:05] LABS: ALBUMIN 2.9 gm/dL (3.5-5.0); BILIRUBIN,TOTAL 0.4 mg/dL (0.2-1.2); C-REACTIVE PROTEIN 0.71 mg/dL (0.00-0.50); CALCIUM 8.2 mg/dL (8.4-10.2); CREATININE, serum 0.61 mg/dL (0.57-1.11); POTASSIUM 3.5 mmol/L (3.5-4.5); TOTAL PROTEIN 6.4 gm/dL (6.2-8.1)
[2021-05-31] MEDS ORDERED: PROMETHAZINE12.5 M5 PO (19:27)
[2021-05-31 21:00] VITALS: BP 121/68; PULSE 74; TEMP 98.1
[2021-06-07] MEDS ORDERED: ZOFRAN ODT4 MG PO (15:29)
== END 2021-05-31 21:00 | disposition home or self-care (01) ==
LOC: COL.ER 14:00
PROVIDERS: Emergency Medicine
DX: O21.9 Vomiting of pregnancy, unspecified (principal); O99.013 Anemia complicating pregnancy, third trimester; D64.9 Anemia, unspecified; Z3A.29 29 weeks gestation of pregnancy
CPT/HCPCS: J2405; J2550; J7030

== ENCOUNTER 2021-06-14 15:00 | Outpatient (RCR) | payer MEDICAID ==
[2021-06-07 15:34] VITALS: BP 132/63; PULSE 62; TEMP 98.5
[2021-06-10 15:27] VITALS: BP 95/55; PULSE 92; TEMP 98.2
--- NOTE | 2021-06-10 15:41 | NUR ---
1541-EFM placed on patient in express unit getting IV infusion of iron. Patient reports 29 weeks due 07/24/2021. Reports good fetall movement. Reactive FHR obtained. 1604 patient off EFM.
[~2021-06-14] VITALS: Ht 162.6 cm; Wt 77.6 kg
[~2021-06-14 15:00] MED LIST changes: +PROMETHAZINE12.5 M5 PO
[2021-06-14 16:15] VITALS: BP 93/59; PULSE 90; TEMP 98.3
== END 2021-06-14 17:41 | disposition still patient (30) ==
LOC: EUO 15:00
DX: O99.019 Anemia complicating pregnancy, unspecified trimester (principal)
CPT/HCPCS: J1756; J7050

== ENCOUNTER → 2021-06-21 | Outpatient (CLI) | payer MEDICAID ==
[~2021-06-21] MED LIST changes: +EUTHYROX100 MCG PO; +NATURAL IRON65 MG PO
== END ==
LOC: DIA.ED 09:09
DX: O24.419 Gestational diabetes mellitus in pregnancy, unspecified control (principal)
CPT/HCPCS: G0108

== ENCOUNTER 2021-07-02 21:18 | Outpatient (CLI) | payer MEDICAID ==
[~2021-07-02] VITALS: Ht 162.6 cm; Wt 75.9 kg
[~2021-07-02 21:18] MED LIST changes: -EUTHYROX100 MCG PO; -NATURAL IRON65 MG PO
--- NOTE | 2021-07-02 21:33 | NUR ---
EFM AND TOCO APPLIED
[2021-07-02] MEDS ORDERED: EUTHYROX100 MCG PO (21:55)
[2021-07-02] MEDS ORDERED: NATURAL IRON65 MG PO (21:56)
[2021-07-02 22:00] VITALS: BP 109/65; PULSE 85; TEMP 98.3
--- NOTE | 2021-07-02 22:15 | NUR ---
PT RESTING IN BED ON CELLPHONE, NO SIGNS OF DISTRESS. PLAN OF CARE DISCUSSED WITH PATIENT AND SHE VERBALIZED AN UNDERSTANDING AND DENIES FURTHER QUESTIONS. PT GIVEN SANDWHICH AND WATER, PT DENIES FURTHER NEEDS AT THIS TIME. CALL LIGHT WITHIN REACH
[2021-07-02 22:30] VITALS: BP 100/61; PULSE 86
--- NOTE | 2021-07-02 22:35 | NUR ---
PT SITTING UPRIGHT IN BED WATCHING TV AND EATING, NO SIGNS OF DISTRESS. FRIEND PRESENT AT BEDSIDE. PT GIVEN ICE PACK FOR ANKLE. PT DENIES FURTHER NEEDS AT THIS TIME
--- NOTE | 2021-07-02 22:55 | NUR ---
BREAKS IN FHTS ARE OBSERVED DURING MATERNAL POSITION CHANGE. RN AT BEDSIDE TO ADJUST MONITORS. PT DENIES FURTHER NEEDS AT THIS TIME.
[2021-07-02 23:00] VITALS: BP 112/68; PULSE 95
[2021-07-02 23:30] VITALS: BP 90/54; PULSE 90
--- NOTE | 2021-07-02 23:37 | NUR ---
2330- DISCHARGE INSTRUCTIONS REVIEWED WITH PATIENT, PT VERBALIZED AN UNDERSTANDING AND DENIES FURTHER QUESTIONS AT THIS TIME. PT GIVEN COPY OF DISCHARGE INSTRUCTIONS. 2337- TOCO AND EFM REMOVED TO ALLOW PT TO CHANGE BACK IN CLOTHES.
--- NOTE | 2021-07-02 23:43 | NUR ---
PT DISCHARGED TO HOME IN STABLE UNDELIVERED CONDITION AT THIS TIME. PT AMBULATED OFF UNIT WITH SISTER AT THIS TIME
== END 2021-07-02 23:43 | disposition home or self-care (01) ==
LOC: LDRO 21:18
DX: O26.893 Other specified pregnancy related conditions, third trimester (principal); O9A.213 Injury, poisoning and certain other consequences of external causes complicating pregnancy, third trimester; R10.9 Unspecified abdominal pain; Z3A.33 33 weeks gestation of pregnancy; W19.XXXA Unspecified fall, initial encounter

== ENCOUNTER 2021-07-29 18:07 | Outpatient (CLI) | payer MEDICAID ==
[~2021-07-29] VITALS: Ht 162.6 cm; Wt 78.2 kg
[~2021-07-29 18:07] MED LIST changes: +EUTHYROX100 MCG PO; +NATURAL IRON65 MG PO
--- NOTE | 2021-07-29 18:15 | NUR ---
Ambulatory to unit for assessment. Pt reports nausea and vomitting x 2 days. Pt reports last time she kept down water was 10pm ;ast [place]. Now reports "dizzy and lightheaded" On monitor, oriented to room, monitor, plan of care. Questions invited and answered,
[2021-07-29 18:30] VITALS: BP 116/70; PULSE 128
[2021-07-29 18:45] VITALS: PULSE 123
[2021-07-29 19:20] VITALS: BP 110/70; PULSE 121
[2021-07-29 19:31] LABS: BASO % 0.2 % (0.0-2.0); EOS # 0.1 K/mm3 (0.0-0.7); EOS % 1.3 % (0.0-4.0); GRAN # 7.9 K/mm3 (1.4-6.5); GRAN % 71.6 % (42.2-75.2); HEMATOCRIT 33.8 % (37.0-47.0); LYMPH % 18.1 % (20.0-51.0); MEAN CELL VOLUME 91 fl (80.0-100.0); MEAN CORPUSCULAR HEMOGLOBIN 30 pg (27-31); MEAN CORPUSCULAR HGB CONC 33 g/dl (33.0-37.0); MEAN PLATELET VOLUME 11.9 fl (7.4-10.4); MONO # 0.9 K/mm3 (0.1-0.6); MONO % 8.2 % (1.7-9.3); PLATELET COUNT 200 K/mm3 (130-400); RED BLOOD COUNT 3.73 M/mm3 (4.10-5.30); REDCELL DISTRIBUTION WIDTH-CV 18.3 % (11.5-14.5)
--- NOTE | 2021-07-29 19:40 | NUR ---
Pt reports "i feel pretty bad, I think I might get sick" Explained to pt that Alyson has been given, given alcohol prep to wave under her nose, cool wash cloth, emesis basin.
[2021-07-29 19:55] LABS: ALBUMIN 3.2 gm/dL (3.5-5.0); BILIRUBIN,TOTAL 0.6 mg/dL (0.2-1.2); CREATININE, serum 0.61 mg/dL (0.57-1.11); POTASSIUM 3.8 mmol/L (3.5-4.5); TOTAL PROTEIN 7.1 gm/dL (6.2-8.1)
--- NOTE | 2021-07-29 19:55 | NUR ---
pt reports "i feel better" apple juice provided and encouraged to take small sips.
[2021-07-29 20:00] VITALS: BP 101/70; PULSE 112
[2021-07-29 20:20] VITALS: PULSE 102
--- NOTE | 2021-07-29 20:25 | NUR ---
Off monitor, up to bathroom. PT relaxed, social. Denies nausea at this time.
[2021-07-29 20:48] LABS: COLLECTION METHOD CLEAN CATCH
[2021-07-29 20:57] LABS: MUCOUS Present (NOT PRESENT); URINE BACTERIA Rare /hpf (NONE SEEN)
[2021-07-29 20:59] LABS: URINE APPEARANCE Clear (CLEAR/HAZY); URINE COLOR Yellow (YELLOW)
[2021-07-29 21:00] LABS: PH 6 (5-8); URINE BILIRUBIN Negative (NEGATIVE); URINE BLOOD 1+ (NEGATIVE); URINE GLUCOSE Negative (NEGATIVE); URINE KETONE Negative (NEGATIVE); URINE LEUKOCYTE ESTERASE Negative (NEGATIVE); URINE NITRATE Negative (NEGATIVE); URINE PROTEIN(semi-quant) 1+ (NEGATIVE); URINE UROBILINOGEN Negative (NEGATIVE)
--- NOTE | 2021-07-29 21:05 | NUR ---
Dr Haas on unit, reviews labs. Discharge order received.
--- NOTE | 2021-07-29 21:10 | NUR ---
Into room to discuss discharge. PT texting . Explained to pt that she could be downstairs waiting for him in 5 minutes. Pt states "I'm starving! Can I have one of those sandwich meals before I go?" Discharge instructions rviewed questions invited and answered. [place] box provided. Will discharge after pt eats. 2119 Denies nausea after eating sandwich, applesauce and cookie. Ambulatory off unit.
== END 2021-07-29 21:20 | disposition home or self-care (01) ==
LOC: LDRO 18:07 → LDR 18:20 → LDRO 21:20
PROVIDERS: Obstetrics & Gynecology
DX: O21.9 Vomiting of pregnancy, unspecified (principal); O26.893 Other specified pregnancy related conditions, third trimester; R42 Dizziness and giddiness; Z3A.37 37 weeks gestation of pregnancy
CPT/HCPCS: OP; J2405; J7121

== ENCOUNTER 2021-08-06 07:30 | Inpatient (IN) | payer MEDICAID ==
[~2021-08-06] VITALS: Ht 162.6 cm; Wt 81.8 kg
[2021-08-09] VITALS (16 sets, daily range): BP systolic 86–108; BP diastolic 44–67; PULSE 62–88; TEMP 98–98.6
--- NOTE | 2021-08-09 09:25 | NUR ---
[id number], [id number] arrives on unit for scheduled section. Ambulatory to 220 with spose. Changes into clean gown. Reports normal movement, and irregular contractions. Denies any LOF or VB. 0940EFM explained and placed. VS obtained. Assessment completed. 0945IV to left FA. Labs obtained. 1000Consent forms explained and signed. IVF infusing. 1030FHR reactive. EFM off. Plan of care reviewed with pt and spouse who verbalize understanding. Resting with call light within reach.
[2021-08-09 10:12] LABS: BASO % 0.4 % (0.0-2.0); EOS # 0.2 K/mm3 (0.0-0.7); GRAN # 5.4 K/mm3 (1.4-6.5); GRAN % 70.7 % (42.2-75.2); HEMOGLOBIN 10.9 g/dl (12.5-16.0); LYMPH # 1.5 K/mm3 (1.2-3.4); LYMPH % 20.2 % (20.0-51.0); MEAN CELL VOLUME 89 fl (80.0-100.0); MEAN CORPUSCULAR HEMOGLOBIN 30 pg (27-31); MEAN CORPUSCULAR HGB CONC 34 g/dl (33.0-37.0); MEAN PLATELET VOLUME 11.5 fl (7.4-10.4); MONO # 0.5 K/mm3 (0.1-0.6); MONO % 6.2 % (1.7-9.3); PLATELET COUNT 143 K/mm3 (130-400); RED BLOOD COUNT 3.61 M/mm3 (4.10-5.30); REDCELL DISTRIBUTION WIDTH-CV 16.5 % (11.5-14.5)
[2021-08-09 10:13] LABS: HEMATOCRIT 32.1 % (37.0-47.0)
[2021-08-09] MEDS ORDERED: EUTHYROX112 MCG PO (10:15)
[2021-08-10 04:00] VITALS: BP 111/64; PULSE 78; TEMP 98.5
[2021-08-10 07:30] VITALS: BP 110/59; PULSE 72; TEMP 97.9
[2021-08-10 07:33] LABS: HEMATOCRIT 29.2 % (37.0-47.0); HEMOGLOBIN 9.9 g/dl (12.5-16.0)
--- NOTE | 2021-08-10 09:24 | NUR ---
Initial visit; Patient thanked Manager Of Case Management for looking in on her and offering congratulations and God's blessings for the of her son.
[2021-08-10 17:23] VITALS: BP 113/72; PULSE 69; TEMP 98.2
[2021-08-10 21:00] VITALS: BP 107/65; PULSE 70; TEMP 98.1
[2021-08-11 07:45] VITALS: BP 109/72; PULSE 77; TEMP 97.9
[2021-08-11] MEDS ORDERED: PERCOCET 325 MG1 TA2 PO (08:54)
[2021-08-11] MEDS ORDERED: IBU600 MG PO (08:54)
[2021-08-11 16:30] VITALS: BP 105/68; PULSE 86; TEMP 98.3
[2021-08-11 19:00] VITALS: BP 115/74; PULSE 79; TEMP 98.3
[2021-08-12 08:30] VITALS: BP 122/72; PULSE 82; TEMP 97.5
--- NOTE | 2021-08-12 12:15 | NUR ---
Discharge instructions and follow up care reviewed by pt and at the bedside. Both verbalized an understanding, agreed with the plan and states no questions or concerns.
== END 2021-08-12 12:27 | disposition home or self-care (01) | DRG 788 ==
LOC: LDR 08-09 07:30 → OB 08-09 09:19
PROVIDERS: ADMIT Obstetrics & Gynecology
PROC: 10D00Z1 Extraction of Products of Conception, Low, Open Approach (ICD-10-PCS; principal; 2021-08-09)
DX: O34.211 Maternal care for low transverse scar from previous cesarean delivery (principal); O24.425 Gestational diabetes mellitus in childbirth, controlled by oral hypoglycemic drugs; O99.02 Anemia complicating childbirth; D64.9 Anemia, unspecified; O99.284 Endocrine, nutritional and metabolic diseases complicating childbirth; E03.9 Hypothyroidism, unspecified; Z3A.38 38 weeks gestation of pregnancy; Z37.0 Single live birth; Z90.79 Acquired absence of other genital organ(s)
CPT/HCPCS: J0171; J0690; J1100; J1885; J2370; J2405; J2590; J7120